=== PATIENT | female | born 1960 | race African-American/Black ===

== ENCOUNTER 2016-09-05 16:43 | Emergency (ER) | payer OTHER ==
[~2016-09-05] VITALS: Ht 152.4 cm; Wt 72.6 kg
--- NOTE | 2016-09-05 18:23 | PHYS DOC ---
Past Medical History Past Medical History: Depression, High Cholesterol, Hypertension Past Surgical History: Alcohol Use: None Drug Use: None Adult General Chief Complaint Chief Complaint: FACE PROBLEM HPI HPI Patient is a 56 year old female with history of hypertension, high cholesterol , depression, who presents today with mild left facial pain intermittently for one week. Patient also appears mentally challenged. She is in the ED with the bill who states she is the caregiver off patient. Bill states patient was seen by the dentist a couple days ago for facial pain, she states they did x-rays which were negative. The sister states she is concerned patient could be having a stroke. The sister also states patient has been sticking her tongue in and out of her mouth for the last 3 weeks for no good reason. Patient denies any pain right now in the ED. Patient denies any fever coughing or congestion. Review of Systems Review of Systems Constitutional: Denies fever or chills [] Eyes: Denies change in visual acuity, redness, or eye pain [] HENT: Left facial pain Respiratory: Denies cough or shortness of breath [] Cardiovascular: No additional information not addressed in HPI [] GI: Denies abdominal pain, nausea, vomiting, bloody stools or diarrhea [] : Denies dysuria or hematuria [] Musculoskeletal: Denies back pain or joint pain [] Integument: Denies rash or skin lesions [] Neurologic: Denies headache, focal weakness or sensory changes [] Endocrine: Denies polyuria or polydipsia [] Allergies Allergies Allergies Coded Allergies Type Severity Reaction Last Updated Verified lisinopril Allergy Severe "FACIAL SWELLING" 09/05/16 No Physical Exam Physical Exam Constitutional: Well developed, well nourished, no acute distress, non-toxic appearance. [] HENT: Normocephalic, atraumatic, bilateral external ears normal, oropharynx moist, no oral exudates, nose normal. [] Eyes: PERRLA, EOMI, conjunctiva normal, no discharge. [] Neck: Normal range of motion, no tenderness, supple, no stridor. [] Cardiovascular:Heart rate regular rhythm, no murmur [] Lungs & Thorax: Bilateral breath sounds clear to auscultation [] Abdomen: Bowel sounds normal, soft, no tenderness, no masses, no pulsatile masses. [] Skin: Warm, dry, no erythema, no rash. [] Back: No tenderness, no CVA tenderness. [] Extremities: No tenderness, no cyanosis, no clubbing, ROM intact, no edema. [] Neurologic: Alert and oriented X 3, normal motor function, normal sensory function, no focal deficits noted. Cranial nose 2 through 12 intact Psychologic: Affect normal, judgement normal, mood normal. [] Current Patient Data Vital Signs Vital Signs Date Time Temp Pulse Resp B/P (MAP) Pulse Ox O2 Delivery O2 Flow Rate FiO2 09/05/16 17:26 165/109 (127) 09/05/16 16:50 98.4 88 18 96 Room Air 98.4 EKG EKG [] Radiology/Procedures Radiology/Procedures []PROCEDURE: CT HEAD AND MAXILLOFACIAL WO Exam performed: CT scan of the head and maxillofacial without contrast. Date of Service: 04/16/13. Comparison: None available. Clinical History: Left-sided facial pain for one week as indicated by the caregiver. Technique: Helical acquisitions are obtained from the foramen magnum to the vertex without intravenous administration of contrast. In addition helical acquisitions are also obtained through the maxillofacial structures. Sagittal and coronal reformatted images are obtained and reviewed. CT head Findings: The ventricles are midline without evidence of dilatation. Normal kay-white differentiation is maintained. There is no extra axial fluid collection, intraparenchymal hemorrhage or mass lesion. The visualized portions of the orbits, paranasal sinuses and the mastoid air cells appear clear. The calvarium is intact. Impression: 1. No acute intracranial process detected. End of impression CT scan maxillofacial findings: There is normal aeration of both maxillary, ethmoid, frontal and sphenoid sinuses. No air-fluid level, mucoperiosteal thickening or mucus retention cyst is identified. The bony orbital margins and the intraorbital contents are bilaterally symmetric. The zygomatic arches are intact. Impression: 1. Negative maxillofacial CT scan . PQRS Compliance Statement: One or more of the following individualized dose reduction techniques were utilized for this examination: 1. Automated exposure control 2. Adjustment of the mA and/or kV according to patient size 3. Use of iterative reconstruction technique Electronically signed by: Elsa Solis MD (09/05/2016 6:25 PM) DICTATED and SIGNED BY: ELSA SOLIS MD DATE: 09/05/161811 CC: WILLAM LOPEZ APRN; NON,STAFF; UNKNOWN PCP NAME ~ Course & Med Decision Making Course & Med Decision Making Pertinent Labs and Imaging studies reviewed. (See chart for details) This is a 56-year-old female patient presented to the ED today with a sister with left facial pain intermittently for week. She appears mentally challenged and is under the care of the step sister. Stepsister concerned patient sticks her tongue in and out of her mouth for no good reason as well for three weeks. Step Sister stated patient takes several medications but they don't know the names. I highly suspect the sticking of her toungue in and out of her mouth could come from some of the medications especially if she is taking antipsychotics the step sister states she takes some medicines for her nerves. I recommended they mentioned this to the primary care doctor. Sister requested we do a CT scan of the patient's head because she is concerned patient could have a stroke from her symptoms. Patient did have a blood pressure 185/115. Assistance report she has history of hypertension but she doesn't remember what patient is supposed to be taking. CT of the head and maxillary facial was negative for any acute findings. Patient was discharged with the family. The instructed to give her Tylenol or Motrin for her pain and follow-up with her own doctor as in the course of this week or next week. Roberton Disclaimer Gertrude Disclaimer This electronic medical record was generated, in whole or in part, using a voice recognition dictation system. Departure Departure Impression: Primary Impression: Facial pain, acute Additional Impressions: Acute chorea Accelerated hypertension Disposition: 01 HOME, SELF-CARE Condition: STABLE Referrals: UNKNOWN PCP NAME (PCP) follow up with your doctor in the course of this week Patient Instructions: Hypertension Additional Instructions: You were seen for left facial pain. We did a CT scan of the head and face which was negative for any acute findings. We highly recommend you follow-up with your own primary care doctor for the symptoms. You can take Tylenol or Motrin for the pain. You need to mention to your primary care doctor you are having some uncontrolled tongue movements. Some of it can come from medications. Your blood pressure was also high. Ensure you follow-up with your doctor and take your blood pressure medicine. Problem Qualifiers WILLAM LOPEZ APRN Sep 05, 2016 18:23
--- NOTE | 2016-09-05 18:29 | RAD ---
Exam performed: CT scan of the head and maxillofacial without contrast. Date of Service: 04/16/13. Comparison: None available. Clinical History: Left-sided facial pain for one week as indicated by the caregiver. Technique: Helical acquisitions are obtained from the foramen magnum to the vertex without intravenous administration of contrast. In addition helical acquisitions are also obtained through the maxillofacial structures. Sagittal and coronal reformatted images are obtained and reviewed. CT head Findings: The ventricles are midline without evidence of dilatation. Normal kay-white differentiation is maintained. There is no extra axial fluid collection, intraparenchymal hemorrhage or mass lesion. The visualized portions of the orbits, paranasal sinuses and the mastoid air cells appear clear. The calvarium is intact. Impression: 1. No acute intracranial process detected. End of impression CT scan maxillofacial findings: There is normal aeration of both maxillary, ethmoid, frontal and sphenoid sinuses. No air-fluid level, mucoperiosteal thickening or mucus retention cyst is identified. The bony orbital margins and the intraorbital contents are bilaterally symmetric. The zygomatic arches are intact. Impression: 1. Negative maxillofacial CT scan . PQRS Compliance Statement: One or more of the following individualized dose reduction techniques were utilized for this examination: 1. Automated exposure control 2. Adjustment of the mA and/or kV according to patient size 3. Use of iterative reconstruction technique Electronically signed by: Elsa Solis MD (09/05/2016 6:25 PM)
[2016-09-05 19:06] VITALS: BP 189/114
== END 2016-09-05 19:06 | disposition home or self-care (01) ==
LOC: ER 16:43
DX: R51 Headache (principal); G25.5 Other chorea; I10 Essential (primary) hypertension; E78.00 Pure hypercholesterolemia, unspecified; F32.9 Major depressive disorder, single episode, unspecified; Z88.8 Allergy status to other drugs, medicaments and biological substances
CPT/HCPCS: 70450; 70486; 99284-25